=== PATIENT | female | born 1975 | race Caucasian/White ===

== ENCOUNTER 2024-07-23 13:20 | Outpatient (CLI) | payer OTHER, SELFPAY | END 2024-07-23 13:21 | disposition home or self-care (01) | LOC: INJ CL 13:24 | PROVIDERS: PCP Physician Assistant Medical; Visit Provider Family Medicine | DX: M17.12 Unilateral primary osteoarthritis, left knee (principal); M25.562 Pain in left knee | CPT/HCPCS: 64454 ==